=== PATIENT | male | born 1940 | race Caucasian/White ===

== ENCOUNTER 2018-07-12 05:36 | Observation (INO) | payer BC, MEDICARE ==
[2018-07-12 06:20] LABS: ADD MAN DIFF? NO
[2018-07-12 06:27] LABS: WHITE BLOOD COUNT 8.4 10^3/ul (4.8-10.8)
[2018-07-12 06:27] LABS: BASOPHIL # 0.1 10^3/ul (0.0-0.1); BASOPHILS % 0.7 % (0.0-2.0); EOSINOPHILS # 0.1 10^3/ul (0.0-0.5); EOSINOPHILS % 1.4 % (0.0-7.0); HEMATOCRIT 42.2 % (42.0-52.0); HEMOGLOBIN 13.4 g/dl (14.0-18.0); LYMPHOCYTES # 1.9 10^3/ul (0.8-2.9); LYMPHOCYTES % 23.2 % (15.0-51.0); MEAN CORPUSCULAR HEMOGLOBIN 28.9 pg (29.0-33.0); MEAN CORPUSCULAR HGB CONC 31.8 g/dl (32.0-37.0); MEAN CORPUSCULAR VOLUME 91.1 fl (82.0-101.0); MEAN PLATELET VOLUME 10.5 fl (7.4-10.4); MONOCYTE # 0.6 10^3/ul (0.3-0.9); MONOCYTES % 7.1 % (0.0-11.0); NEUTROPHIL # 5.6 10^3/ul (1.6-7.5); NEUTROPHILS % 66.5 % (39.0-77.0); PLATELET COUNT 222 10^3/UL (140-415); RED BLOOD COUNT 4.63 10^6/ul (4.70-6.10); RED CELL DISTRIBUTION WIDTH 13.8 % (11.5-14.5)
[2018-07-12 06:42] LABS: INR 0.96; PROTIME 12.9 Sec (11.9-14.9)
[2018-07-12 06:48] LABS: CREATINE KINASE 174 IU/L (23-200)
[2018-07-12 06:50] LABS: ALANINE AMINOTRANSFERASE 30 IU/L (13-69); ALBUMIN 4.4 g/dl (3.3-4.9); ALBUMIN/GLOBULIN RATIO 1.51; ALKALINE PHOSPHATASE 69 IU/L (42-121); ANION GAP 9 (5-13); ASPARTATE AMINO TRANSFERASE 19 IU/L (15-46); BILIRUBIN,INDIRECT 0.5 mg/dl (0-1.1); BILIRUBIN,TOTAL 0.5 mg/dl (0.2-1.3); CALCIUM 9.7 mg/dl (8.4-10.2); CARBON DIOXIDE 30 mmol/L (21-31); CHLORIDE 102 mmol/L (97-110); CHOL/HDL RATIO 3.1 RATIO; CHOLESTEROL 128 mg/dl (100-200); GLUCOSE 148 mg/dl (70-220); HDL CHOLESTEROL 41 mg/dl (31-75); LDL CHOLESTEROL,CALCULATED 50 mg/dl; SODIUM 141 mmol/L (135-144); TOTAL PROTEIN 7.3 g/dl (6.1-8.1); TRIGLYCERIDES 184 mg/dl (0-149)
[2018-07-12 06:51] LABS: BLOOD UREA NITROGEN 27 mg/dl (7-20); CREATININE 1.45 mg/dl (0.61-1.24); POTASSIUM 5.3 mmol/L (3.5-5.1)
[2018-07-12 07:00] LABS: CK INDEX 0.5; CK-MB 0.93 ng/ml (0.0-2.4); TROPONIN-I < 0.012 ng/ml (0.000-0.120)
[2018-07-12] MEDS ORDERED: LIDOCAINE 1% (MDV) 20 ML INJ (07:28)
[2018-07-12] MEDS ORDERED: MIDAZOLAM 1 MG/ML 2 ML INJ (07:28)
[2018-07-12] MEDS ORDERED: SOD CHLORIDE 0.9% 500 ML (07:28)
[2018-07-12] MEDS ORDERED: IODIXANOL LOCM 100 ML BTL (07:28)
[2018-07-12] MEDS ORDERED: FENTAnyl 50 MCG/ML VIAL (07:28)
[2018-07-12] MEDS ORDERED: VERAPAMIL 5 MG INJ (08:19)
[2018-07-12] MEDS ORDERED: NITROGLYCERIN (IC) 100 MCG/ML INJ (08:19)
[2018-07-12] MEDS ORDERED: IOHEXOL 350MG/ML 50 ML BTL (08:38)
[2018-07-12] MEDS ORDERED: BIVALIRUDIN 250MG /NS 50 ML 100 ML IVPB (08:38)
[2018-07-12] MEDS ORDERED: CLOPIDOGREL 300 MG TAB (09:19)
[2018-07-12] MEDS ORDERED: ASPIRIN 81 MG TAB (09:20)
[2018-07-12] MEDS ORDERED: SOD CHLORIDE 0.9% 1,000 ML IV (09:24)
[2018-07-12] MEDS ORDERED: morphine 2 MG INJ IV (09:30)
[2018-07-12] MEDS ORDERED: ACETAMINOPHEN 325 MG TAB PO (09:30)
[2018-07-12] MEDS ORDERED: OXYCODONE/ACETAMINOPHEN (5/325) TAB PO ×2 (09:30)
[2018-07-12] MEDS ORDERED: GLUCOSE GEL 15 GRAM TUBE PO ×2 (11:30)
[2018-07-12] MEDS: ACCU-CHEK XX ×3 (11:30→20:52)
[2018-07-12] MEDS ORDERED: GLUCOSE GEL 15 GRAM TUBE BUCCAL (11:30)
[2018-07-12] MEDS ORDERED: GLUCAGON 1 MG INJ IM (11:30)
[2018-07-12] MEDS ORDERED: DEXTROSE 50% 50 ML SYRINGE IV ×2 (11:30)
[2018-07-12] MEDS: SOD CHLORIDE 0.9% 1,000 ML IV (12:13)
[2018-07-12] MEDS: ATORVASTATIN 80 MG TAB PO (20:51)
[2018-07-12] MEDS: EZETIMIBE 10 MG TAB PO (20:51)
[2018-07-12] MEDS: RANOLAZINE (SR) 500 MG TAB PO (20:51)
[2018-07-13 01:16] LABS: ADD UMIC YES; UR ASCORBIC ACID NEGATIVE (NEGATIVE); UR BILIRUBIN (Dip) NEGATIVE (NEGATIVE); UR BLOOD (Dip) 1+ mg/dL (NEGATIVE); UR CLARITY CLEAR (CLEAR); UR COLOR STRAW (YELLOW); UR GLUCOSE (Dip) NEGATIVE (NEGATIVE); UR KETONES (Dip) NEGATIVE (NEGATIVE); UR LEUKOCYTE ESTERASE (Dip) NEGATIVE Leu/ul (NEGATIVE); UR NITRITE (Dip) NEGATIVE (NEGATIVE); UR RBC 0 /HPF (0-5); UR TOTAL PROTEIN (Dip) NEGATIVE (NEGATIVE); UR UROBILINOGEN (Dip) NEGATIVE (NEGATIVE); UR WBC 0 /HPF (0-5)
[2018-07-13 02:14] LABS: SODIUM,URINE RANDOM 61 mmol/L (30-90)
[2018-07-13 02:14] LABS: CREATININE,URINE RANDOM 41.12 mg/dl (20-370)
[2018-07-13 06:47] LABS: ADD MAN DIFF? NO
[2018-07-13 06:52] LABS: WHITE BLOOD COUNT 8.3 10^3/ul (4.8-10.8)
[2018-07-13 06:52] LABS: BASOPHILS % 0.4 % (0.0-2.0); EOSINOPHILS # 0.1 10^3/ul (0.0-0.5); EOSINOPHILS % 1.4 % (0.0-7.0); HEMOGLOBIN 12.9 g/dl (14.0-18.0); LYMPHOCYTES # 1.4 10^3/ul (0.8-2.9); LYMPHOCYTES % 17.2 % (15.0-51.0); MEAN CORPUSCULAR HGB CONC 32.3 g/dl (32.0-37.0); MEAN CORPUSCULAR VOLUME 89.9 fl (82.0-101.0); MEAN PLATELET VOLUME 10.8 fl (7.4-10.4); MONOCYTE # 0.7 10^3/ul (0.3-0.9); NEUTROPHILS % 71.9 % (39.0-77.0); PLATELET COUNT 193 10^3/UL (140-415); RED BLOOD COUNT 4.45 10^6/ul (4.70-6.10)
[2018-07-13 07:16] LABS: ALANINE AMINOTRANSFERASE 21 IU/L (13-69); ALBUMIN 3.9 g/dl (3.3-4.9); ALBUMIN/GLOBULIN RATIO 1.25; ALKALINE PHOSPHATASE 56 IU/L (42-121); ANION GAP 9 (5-13); ASPARTATE AMINO TRANSFERASE 18 IU/L (15-46); BILIRUBIN,INDIRECT 0.5 mg/dl (0-1.1); BILIRUBIN,TOTAL 0.5 mg/dl (0.2-1.3); BLOOD UREA NITROGEN 20 mg/dl (7-20); CALCIUM 8.8 mg/dl (8.4-10.2); CARBON DIOXIDE 25 mmol/L (21-31); CHLORIDE 105 mmol/L (97-110); CREATININE 1.21 mg/dl (0.61-1.24); GLUCOSE 146 mg/dl (70-220); MAGNESIUM 2.1 mg/dl (1.7-2.5); POTASSIUM 4.3 mmol/L (3.5-5.1); SODIUM 139 mmol/L (135-144)
[2018-07-13] MEDS: ACCU-CHEK XX ×2 (07:29→10:44)
[2018-07-13] MEDS: ASPIRIN (EC) 81 MG TAB PO (08:14)
[2018-07-13] MEDS: CLOPIDOGREL 75 MG TAB PO (08:14)
[2018-07-13] MEDS: METOPROLOL (XL) 100 MG TAB PO (08:14)
[2018-07-13] MEDS: GLIMEPIRIDE 4 MG TAB PO (08:15)
[2018-07-13] MEDS: RANOLAZINE (SR) 500 MG TAB PO (08:15)
[2018-07-14 15:16] LABS: CREATININE, RANDOM URINE 42 mg/dL (20-320); MICROALBUMIN 0.2 mg/dL; MICROALBUMIN/CREATININE RATIO 5 (<30)
== END 2018-07-13 11:30 | disposition home or self-care (01) ==
LOC: CCL 05:36 → SDS 05:36 → CCL 09:23 → REC 09:24 → TEL 15:08
DX: I25.118 Atherosclerotic heart disease of native coronary artery with other forms of angina pectoris (principal); Z95.1 Presence of aortocoronary bypass graft; E78.5 Hyperlipidemia, unspecified; I10 Essential (primary) hypertension; E11.9 Type 2 diabetes mellitus without complications; N28.9 Disorder of kidney and ureter, unspecified; Z79.82 Long term (current) use of aspirin; Z79.84 Long term (current) use of oral hypoglycemic drugs
CPT/HCPCS: 80053; 80061; 81001; 81003; 82043; 82550; 82553; 82962; 83735; 84155; 84300; 84484; 85025; 85610; 85730; 92928; 92929; 93005; 93458; G0378